=== PATIENT | male | born 1975 | race African-American/Black ===

== ENCOUNTER 2019-03-25 16:48 | Emergency (ER) | payer OTHER ==
[~2019-03-25] VITALS: Ht 175.3 cm; Wt 102.1 kg
[2019-03-25] MEDS ORDERED: ACETAMINOPHEN 500 MG TABLET PO ONE (18:15)
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
[2019-03-25 19:32] VITALS: BP 128/75
== END 2019-03-25 19:49 | disposition home or self-care (01) ==
LOC: EEVIPCON 16:48 → ER 16:48
DX: S00.03XA Contusion of scalp, initial encounter (principal); S00.512A Abrasion of oral cavity, initial encounter; R55 Syncope and collapse; I10 Essential (primary) hypertension; Y08.09XA Assault by strike by other specified type of sport equipment, initial encounter; Y93.89 Activity, other specified; Y92.148 Other place in prison as the place of occurrence of the external cause; Y99.8 Other external cause status
CPT/HCPCS: 70450; 99284-25